=== PATIENT | female | born 1980 | race Asian ===

== ENCOUNTER 2019-02-03 10:05 | Emergency (ER) | payer OTHER ==
[~2019-02-03] VITALS: Ht 152.4 cm; Wt 52.8 kg
[2019-02-03 10:07] VITALS: Ht 152.4 cm; Wt 52.8 kg
[2019-02-03 12:56] VITALS: BP 154/88; PULSE 74; RESP 17
--- NOTE | 2019-02-03 14:08 | ERD ---
ER Documentation Chief Complaint Chief Complaint LOWER ABDOMINAL PAIN/VAGINAL SPOTTING - LMP 11/10/18 HPI 38 yr old female complaining of vaginal spotting. LNMP 11/10/2018. Patient is being seen by Dr. Jc Moffett. A0. Mild bleeding no clots. Denies medical problems. NKDA. Surgical history . Social history denies ROS All systems reviewed and are negative except as per history of present illness. Allergies Allergies: Coded Allergies: No Known Allergy (Unverified , 02/03/19) PMhx/Soc Medical and Surgical Hx: pt denies Medical Hx, pt denies Surgical Hx Hx Alcohol Use: No Hx Substance Use: No Hx Tobacco Use: No Smoking Status: Never smoker FmHx Family History: No diabetes, No coronary disease, No other Physical Exam Vitals Vital Signs Date Temp Pulse Resp B/P (MAP) Pulse Ox O2 O2 Flow FiO2 Time Delivery Rate 02/03/19 98.8 74 17 154/88 97 Room Air 12:56 (110) 02/03/19 98.8 83 17 164/95 97 10:07 (118) Physical Exam GENERAL: The patient is well-appearing, well-nourished, in no acute distress CHEST: Clear to auscultation bilaterally. There are no rales, wheezes or rhonchi. HEART: Regular rate and rhythm. No murmurs, clicks, rubs or gallops. ABDOMEN:Soft, nontender and nondistended. Good bowel sounds. No rebound or guarding. No gross peritonitis. No gross organomegaly or masses. Result Diagram: 02/03/19 1038 Results 24 hrs Laboratory Tests Test 02/03/19 10:38 White Blood Count 7.4 10^3/ul Red Blood Count 4.38 10^6/ul Hemoglobin 11.8 g/dl Hematocrit 36.6 % Mean Corpuscular Volume 83.6 fl Mean Corpuscular Hemoglobin 26.9 pg Mean Corpuscular Hemoglobin Concent 32.2 g/dl Red Cell Distribution Width 15.6 % Platelet Count 302 10^3/UL Mean Platelet Volume 8.9 fl Immature Granulocytes % 0.100 % Neutrophils % 53.4 % Lymphocytes % 32.1 % Monocytes % 11.9 % Eosinophils % 2.0 % Basophils % 0.5 % Nucleated Red Blood Cells % 0.0 /100WBC Immature Granulocytes # 0.010 10^3/ul Neutrophils # 4.0 10^3/ul Lymphocytes # 2.4 10^3/ul Monocytes # 0.9 10^3/ul Eosinophils # 0.2 10^3/ul Basophils # 0.0 10^3/ul Nucleated Red Blood Cells # 0.0 10^3/ul Urine Color YELLOW Urine Clarity SLIGHTLY CLOUDY Urine pH 5.0 Urine Specific [place] 1.029 Urine Ketones TRACE mg/dL Urine Nitrite NEGATIVE mg/dL Urine Bilirubin NEGATIVE mg/dL Urine Urobilinogen 2+ mg/dL Urine Leukocyte Esterase NEGATIVE Jameson/ul Urine Microscopic RBC 4 /HPF Urine Microscopic WBC 3 /HPF Urine Squamous Epithelial Cells FEW /HPF Urine Mucus MODERATE /HPF Urine Hemoglobin NEGATIVE mg/dL Urine Glucose NEGATIVE mg/dL Urine Total Protein NEGATIVE mg/dl Beta HCG, Quantitative 340589.0 mIU/ml Procedures/MDM DIAGNOSTIC IMAGING REPORT Patient: KENIA GONSALES : 1980 Age: 38 Sex: F MR #: [id number] DOS: 02/03/19 1025 Ordering MD: SUKUMAR SAMSON PA-C Location: [facility] Room/Bed: PROCEDURE: US OB. CLINICAL INDICATION: Vaginal bleeding TECHNIQUE: Transabdominal views of the pelvis are available for review. COMPARISON: No prior studies are available for comparison. FINDINGS: There is a single intrauterine gestation with the crown-rump length measuring 3.1 cm and the gestational sac measures 3.9 cm, corresponding to a gestational age of 9 weeks and 4 days. The heart rate is noted at 176 bpm. The ovaries are not visualized. There is a large heterogeneous mass arising from the fundus of the uterus measuring 9 x 10 cm, suspicious for a large exophytic fibroid. There is no free fluid. RPTAT: AA IMPRESSION: Single live intrauterine with an estimated gestational age of 9 weeks and 4 days, based on ultrasound measurements. JORDON based on ultrasound measurements is 09/04/19. Large exophytic fibroid in the fundus of the uterus. MDM: Neural female presenting with vaginal bleeding. Patient is hemodynamically stable. There is no signs of on ultrasound. Patient is Rh+ does not require RhoGam injection. Patient has no findings noted of urinary tract infection. Patient is discharged with strict ER precautions and told to follow- up with primary care within 1-2 days for close evaluation. Patient is told if symptoms change or worsen to return to the ER. All questions answered at discharge Departure Diagnosis: Primary Impression: Vaginal bleeding Condition: Stable Patient Instructions: Vaginal Bleed in Referrals: RESIDENT ASSISTANT [place] [id number] [facility] [address] [place] [address]LE[address] [facility] [address] [place] [address] [address], [place] [address] [place] [address] [address] [facility] [address] [facility] [facility] [address] [address]A, [facility] [address] [place] [address] [facility] [address] [place] [address] [phone] [address] [facility] [address] - [place] [address] [facility]. [address], [facility] [address] [address] [id number] [facility], [facility] [address] [address] [facility] [address] [place], [place] [id number] Additional Instructions: FOLLOW UP WITH YOUR PRIMARY CARE PHYSICIAN TOMORROW.Return to this facility if you are not improving as expected. BRADLEY SAMSON PA-C Feb 03, 2019 14:08
== END 2019-02-03 12:57 | disposition home or self-care (01) ==
LOC: FTE 10:05
DX: O20.9 Hemorrhage in early pregnancy, unspecified (principal); R10.2 Pelvic and perineal pain; Z3A.09 9 weeks gestation of pregnancy
CPT/HCPCS: 36415; 76801; 81001; 81003; 84702; 85025; 86900; 86901

== ENCOUNTER 2019-03-11 16:34 | Emergency (ER) | payer OTHER ==
[~2019-03-11] VITALS: Ht 157.5 cm; Wt 63.6 kg
[2019-03-11 16:36] VITALS: Ht 157.5 cm; Wt 63.6 kg
[2019-03-11] MEDS ORDERED: ONDANSETRON 4 MG INJ IV STA (16:49)
[2019-03-11] MEDS ORDERED: SOD CHLORIDE 0.9% 1,000 ML IV STA (16:49)
[2019-03-11] MEDS ORDERED: LABE200T25 PO (17:33)
[2019-03-11] MEDS ORDERED: METO10TA3 PO (17:34)
[2019-03-11] MEDS ORDERED: ASPI-817 PO (17:34)
[2019-03-11] MEDS ORDERED: FOLI-49 PO (17:36)
[2019-03-11] MEDS ORDERED: PREN-93 PO (17:36)
--- NOTE | 2019-03-11 18:08 | ERD ---
ER Documentation Chief Complaint Chief Complaint c/o vomiting blood since this AM. 14 weeks . Hx: HTN HPI Patient is a 38-year-old female with hypertension who presents with 2 episodes of vomiting blood. She said the blood was reddish-brown. It started at 2:50 PM. She has never had this before. She said that she is 14 weeks . She feels dehydrated. She has no diarrhea. Upon review of old medical records this is the patient's second visit to the ER since February 03. She does not member the name of her primary doctor or her OB doctor. ROS All systems reviewed and are negative except as per history of present illness. Medications Home Meds Active Scripts Ondansetron (Ondansetron Odt) 4 Mg Tab.rapdis, 4 MG PO Q6H PRN for NAUSEA AND/OR VOMITING, #10 TAB Prov:CALE LARSON MD 03/11/19 Reported Medications Folic Acid* (Folic Acid*) 1 Mg Tablet, 1 MG PO DAILY, TAB 03/11/19 Vit No.124/Iron/FA ( Vitamin Tablet) 1 Each Tablet, 1 EACH PO DAILY, TAB 03/11/19 Metoclopramide Hcl* (Metoclopramide Hcl*) 10 Mg Tablet, 10 MG PO BID PRN for NAUSEA AND OR VOMITING, TAB 03/11/19 Aspirin* (Aspirin* EC) 81 Mg Tablet.dr, 81 MG PO DAILY, TAB 03/11/19 Labetalol Hcl* (Labetalol Hcl*) 200 Mg Tablet, 200 MG PO BID, TAB 03/11/19 Allergies Allergies: Coded Allergies: No Known Allergy (Unverified , 03/11/19) PMhx/Soc History of Surgery: No Anesthesia Reaction: No Hx Neurological Disorder: No Hx Respiratory Disorders: No Hx Cardiac Disorders: Yes (HTN) Hx Psychiatric Problems: No Hx Miscellaneous Medical Probl: No Hx Alcohol Use: No Hx Substance Use: No Hx Tobacco Use: No Smoking Status: Never smoker FmHx Family History: No diabetes Physical Exam Vitals Vital Signs Date Temp Pulse Resp B/P (MAP) Pulse Ox O2 O2 Flow FiO2 Time Delivery Rate 03/11/19 80 16 121/85 99 Room Air 18:25 (97) 03/11/19 72 20 137/99 99 Room Air 16:41 (112) 03/11/19 97.8 92 22 149/102 97 16:36 (118) Physical Exam Const: No acute distress Head: Atraumatic Eyes: Normal Conjunctiva ENT: Normal External Ears, Nose and Mouth. Neck: Full range of motion. No meningismus. Resp: Clear to auscultation bilaterally Cardio: Regular rate and rhythm, no murmurs Abd: Soft, 14-week abdomen Skin: Mildly pale skin Back: No midline or flank tenderness Ext: No cyanosis, or edema Neur: Awake and alert Psych: Normal Mood and Affect Result Diagram: 03/11/19 1655 03/11/19 1655 Results 24 hrs Laboratory Tests Test 03/11/19 16:55 03/11/19 18:17 White Blood Count 12.0 10^3/ul Red Blood Count 4.16 10^6/ul Hemoglobin 11.7 g/dl Hematocrit 35.7 % Mean Corpuscular Volume 85.8 fl Mean Corpuscular Hemoglobin 28.1 pg Mean Corpuscular Hemoglobin Concent 32.8 g/dl Red Cell Distribution Width 15.6 % Platelet Count 297 10^3/UL Mean Platelet Volume 8.9 fl Immature Granulocytes % 0.300 % Neutrophils % 81.9 % Lymphocytes % 12.8 % Monocytes % 3.8 % Eosinophils % 0.6 % Basophils % 0.6 % Nucleated Red Blood Cells % 0.0 /100WBC Immature Granulocytes # 0.040 10^3/ul Neutrophils # 9.8 10^3/ul Lymphocytes # 1.5 10^3/ul Monocytes # 0.5 10^3/ul Eosinophils # 0.1 10^3/ul Basophils # 0.1 10^3/ul Nucleated Red Blood Cells # 0.0 10^3/ul Prothrombin Time 12.3 Sec Prothrombin Time Ratio 1.0 INR International Normalized Ratio 0.90 Activated Partial Thromboplast Time 24.6 Sec Sodium Level 140 mmol/L Potassium Level 4.3 mmol/L Chloride Level 104 mmol/L Carbon Dioxide Level 26 mmol/L Anion Gap 10 Blood Urea Nitrogen 6 mg/dl Creatinine 0.53 mg/dl Est Glomerular Filtrat Rate mL/min > 60 mL/min Glucose Level 106 mg/dl Calcium Level 9.7 mg/dl Total Bilirubin 0.3 mg/dl Direct Bilirubin 0.00 mg/dl Indirect Bilirubin 0.3 mg/dl Aspartate Amino Transf (AST/SGOT) 33 IU/L Alanine Aminotransferase (ALT/SGPT) 56 IU/L Alkaline Phosphatase 55 IU/L Troponin I < 0.012 ng/ml Total Protein 7.4 g/dl Albumin 4.0 g/dl Globulin 3.40 g/dl Albumin/Globulin Ratio 1.17 Urine Color YELLOW Urine Clarity CLEAR Urine pH 6.0 Urine Specific [place] 1.016 Urine Ketones 2+ mg/dL Urine Nitrite NEGATIVE mg/dL Urine Bilirubin NEGATIVE mg/dL Urine Urobilinogen 1+ mg/dL Urine Leukocyte Esterase NEGATIVE Jameson/ul Urine Hemoglobin NEGATIVE mg/dL Urine Glucose NEGATIVE mg/dL Urine Total Protein NEGATIVE mg/dl Current Medications Medications Dose Sig/Miranda Start Time Status Last (Trade) Ordered Route PRN Stop Time Admin Dose Reason Admin Sodium 1,000 ml @ Q1H STAT 03/11/19 DC 03/11/19 Chloride 1,000 mls/hr IV 16:49 17:00 03/11/19 17:48 Ondansetron 4 mg ONCE STAT 03/11/19 DC 03/11/19 HCl (Zofran IV 16:49 17:00 Inj) 03/11/19 16:51 Procedures/MDM EKG read by me: Rate/Rhythm: Regular rate and rhythm at a rate of 66 Intervals: Normal Impression: No evidence of ischemia or arrhythmia Ultrasound of the abdomen shows a 14-week fetus per radiology. Patient is a 30-year-old female who presents with 2 episodes of hematemesis. Hemoglobin is 11.7. Other laboratory studies are basically normal. Her Glascow Blatchford bleeding score is 1 putting her in low risk category. The patient will need to follow-up closely with her primary doctor and her OB doctor. I do not believe she requires admission to the hospital at this time. She can return for any worsening symptoms. She will be given Zofran for symptom medic relief. If her hematemesis continues she may require an endoscopy. This is most likely Diana-Montague tear from vomiting. She has no history of alcohol use or abuse and I doubt varices. Epifanio-Blatchford Bleeding Score (GBS) from [employer] on 03/11/2019 All calculations should be rechecked by clinician prior to use RESULT SUMMARY: 1 points A GBS greater than zero suggests a High Risk GI bleed that is likely to require medical intervention: transfusion, endoscopy, or surgery. A higher GBS also correlated with a higher likelihood of needing intervention (scores ?6 are associated with >50% risk of needing intervention) INPUTS: Hemoglobin > 11.7 g/dL BUN > 6 mg/dL Initial systolic BP > 149 mm Hg Sex > 1 = Female Heart rate ?100 > 0 = No Melena present > 0 = No Recent syncope > 0 = No Hepatic disease history > 0 = No Cardiac failure present > 0 = No Departure Diagnosis: Primary Impression: Hematemesis Nausea presence: with nausea Qualified Codes: K92.0 - Hematemesis Condition: CALE Rand MD March 11, 2019 18:08
[2019-03-11] MEDS ORDERED: ONDA4TAB14 PO (18:11)
[2019-03-11 18:25] VITALS: BP 121/85; PULSE 80; RESP 16
--- NOTE | 2019-03-12 14:26 | RADRPT ---
Vent Rate: 66 bpm RR Interval: 0 msec IN Interval: 154 msec QRS Duration: 76 msec QT Interval: 412 msec QTC Interval: 431 msec P-R-T [place]: 52 - 45 - 27 degrees Normal sinus rhythm Normal ECG Electronically Signed By: [facility]
== END 2019-03-11 18:25 | disposition home or self-care (01) ==
LOC: E/R 16:34
DX: O99.612 Diseases of the digestive system complicating pregnancy, second trimester (principal); K92.0 Hematemesis; O10.012 Pre-existing essential hypertension complicating pregnancy, second trimester; Z79.82 Long term (current) use of aspirin; Z3A.14 14 weeks gestation of pregnancy
CPT/HCPCS: 36415; 76805; 80053; 81003; 84484; 85025; 85610; 85730; 86850; 86900; 86901; 93005; 96374; J2405; J7030; Z7502